=== PATIENT | male | born 1985 | race Caucasian/White ===

== ENCOUNTER → 2018-07-03 | Outpatient (CLI) | payer MEDICARE ==
[~2018-07-03] MED LIST: ALBU0.63 NEB; VALP250C59 PO
== END | disposition home or self-care (01) ==
LOC: CFH 06:54
PROVIDERS: ATTEND Internal Medicine Gastroenterology
DX: R10.811 Right upper quadrant abdominal tenderness (principal); G40.909 Epilepsy, unspecified, not intractable, without status epilepticus; G43.A0 Cyclical vomiting, in migraine, not intractable; Z88.0 Allergy status to penicillin
CPT/HCPCS: 76705

== ENCOUNTER 2019-12-22 16:04 | Emergency (ER) | payer SELFPAY ==
[~2019-12-22] VITALS: Ht 172.7 cm; Wt 72.0 kg
[2019-12-22 16:55] LABS: RAPID INFLUENZA A Negative (Negative); RAPID INFLUENZA B Negative (Negative)
--- NOTE | 2019-12-22 19:00 | NUR ---
pt called to room from lobby
[2019-12-22] MEDS ORDERED: ALBUTEROL SULFATE 2.5 MG/3 ML NPPB ONE (19:30)
[2019-12-22] MEDS ORDERED: ALBUTEROL/IPRATROPIUM 2.5MG/0.5MG, 3 ML NPPB ONE (19:30)
[2019-12-22] MEDS ORDERED: ALBUTEROL/IPRATROPIUM 2.5MG/0.5MG, 3 ML ONE (19:38)
--- NOTE | 2019-12-22 19:40 | NUR ---
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 PATIENT HAS HX OF ASTHMA AND BRONCHITIS. PATIENT IS A&OX4, ALL MONITORING IN PLACE, SINUS TACHY ON MONITOR AT 105. INSPIRATORY WHEEZES AUSCULTATED THROUGHOUT. DENIES CP, DENIES N/V. VSS, NAD AT THIS TIME, PLACED ON 2L NC TO MAINTAIN SPO2 GREATER THAN 90%. PATIENT MEDICATED PER EMAR. RT TO ROOM AT THIS TIME
[2019-12-22 20:42] VITALS: BP 115/82
--- NOTE | 2019-12-22 20:43 | NUR ---
Patient/Caregiver given discharge instructions and they have confirmed that they understand the instructions. Patient ambulatory with steady gait.
== END 2019-12-22 20:50 | disposition home or self-care (01) ==
LOC: ED 20:40
DX: J20.8 Acute bronchitis due to other specified organisms (principal); J45.909 Unspecified asthma, uncomplicated; R00.0 Tachycardia, unspecified; F17.200 Nicotine dependence, unspecified, uncomplicated
CPT/HCPCS: 71046; 87400; 93005; 94640; 99285; J7512; J7620